=== PATIENT | female | born 1990 | race Caucasian/White ===

== ENCOUNTER 2024-02-19 22:02 | Emergency (ER) | payer BC, SELFPAY ==
[2024-02-19 22:08] VITALS: BP 122/84
[2024-02-19 22:32] LABS: % Basophils 0.6 % (0-2); % Eosinophils 2.6 % (0-6); % Immature Granulocytes 0.2 % (0-0.5); % Lymphocytes 42.7 % (20.5-51.1); % Monocytes 7.6 % (1.7-9.3); % Neutrophils 46.3 % (42.2-75.2); Absolute Basophils 0.1 10^3/uL (0-0.2); Absolute Eosinophils 0.2 10^3/uL (0-0.7); Absolute Monocytes 0.7 10^3/uL (0.1-0.6); Absolute Neutrophils 4.3 10^3/uL (1.4-6.5); Hematocrit 42.1 % (37.0-47.0); Hemoglobin 15.1 g/dL (12.0-16.0); Mean Corp Hgb Conc. 35.9 g/dL (33.0-37.0); Mean Corpuscular Hgb 29.8 pg (27.0-31.0); Mean Corpuscular Volume 83.2 fL (81.0-99.0); Mean Platelet Volume 8.7 fL (7.4-10.4); Nucleated Red Blood Cells % 0 %; Platelet Count 414 10^3/uL (130-400); Red Blood Cell Count 5.06 10^6/uL (4.20-5.40); Red Cell Dist. Width 12.5 % (11.5-14.5); White Blood Cell Count 9.3 10^3/uL (4.8-10.8)
[2024-02-19 22:44] LABS: HCG, Serum Qualitative Screen Negative
[2024-02-19 22:47] LABS: ALT (SGPT) 86 U/L (0-35); AST (SGOT) 53 U/L (14-36); Albumin 4.8 g/dl (3.5-5.0); Alkaline Phosphatase 81 U/L (38-126); Blood Urea Nitrogen 12 mg/dl (7-17); Calcium 10.1 mg/dl (8.4-10.2); Carbon Dioxide 28 mmol/L (22-30); Chloride 100 mmol/L (98-107); Glucose 105 mg/dl (70-99); Lipase 144 U/L (23-300); Potassium 3.3 mmol/L (3.5-5.1); Sodium 142 mmol/L (135-145); Total Bilirubin 1.5 mg/dl (0.2-1.3); Total Protein 7.8 g/dl (6.3-8.2); eGFR > 60.00
[2024-02-20 01:09] VITALS: BMI 46.8
[2024-02-20 01:16] VITALS: BP 121/89
--- NOTE | 2024-02-20 01:45 | ED.GENMED ---
History of Present Illness
General
Chief Complaint: Abdominal Pain
Source: patient
Exam Limitations: none
Time Seen by Provider: 02/20/24 01:12
History of Present Illness
History of Present Illness:
This is a 33 year old female that comes in with c/o abd pain. States that on Monday at 3am with diarrhea. States that this continued till yesterday around 12 noon. Then on Monday morning she has a soft stool and then diarrhea and when she got here
she also had diarrhea. States that she feels like she has to go and that there is a big gas bubble. States that she has abd pain, nausea with the diarrhea. Denies any fever, chills, chest pain, SOB, vomiting, headache, dizziness, urinary burning.
Past History
Past History
ED Past Medical History: Asthma (Sport induced), GERD and Other (Migraines)
ED Past Surgical History: None
Social History
Tobacco: Smoker
Alcohol: None
Personal: Single
Living: with family
Review of Systems
Review of Systems
All Other Systems: ROS reviewed and negative except as documented in HPI and ROS
Constitutional: Reports no symptoms; Denies fever or chills
EENT: Reports no symptoms
Respiratory: Reports no symptoms; Denies cough or trouble breathing
Cardiac: Reports no symptoms; Denies chest pain
ABD/GI: Reports abdominal pain, nausea and diarrhea; Denies vomiting
: Reports no symptoms; Denies dysuria, frequency or urgency
Musculoskeletal: Reports no symptoms
Skin: Reports no symptoms
Neurological: Reports no symptoms; Denies dizzy or headache
Psychiatric: Reports no symptoms
Phy Exam
General Physical Exam
General Presentation: no apparent distress
General age: appears stated age
General Skin: warm and dry
General Habitus: normal
General Mental: alert
General Hydration: appears well hydrated
ENT Exam
ENT Exam: TM's normal, pharynx normal and neck supple
Eye Exam
Eye Exam: EOMI
Cardiovascular Exam
Cardiovascular Exam: regular rate/rhythm, no edema, no murmur and normal peripheral pulses
Pulmonary Exam
Pulmonary Exam: lungs clear, no respiratory distress, no rales, chest non tender, no crackles, no rhonchi, no wheezing and no cough
Gastrointestinal Exam
Gastrointestinal Exam: normal bowel sounds, soft, no organomegaly, no pulsatile mass, non distended, tender (Epigastric and RUQ tenderness with palpation) and other (Obese)
Musculoskeletal Exam
Musculoskeletal Exam: full ROM and no edema
Skin Exam
Skin Exam: normal color, warm/dry, no rash and no petechia
Psychiatric Exam
Psychiatric Exam: normal mood/affect
Course
Orders/Labs/Results
Orders:
Orders
02/19/24 22:14
Test Result ONCE
02/19/24 22:24
Complete Blood Count/With Diff Urgent
Comprehensive Metabolic Panel Urgent
HCG, Serum Qualitative Screen Urgent
Lipase Urgent
02/20/24 01:44
Ondansetron Orally Disint [Zofran Odt (Orally Disintegrating)] 4 mg PO NOW STA
US Abdomen Complete/Upper Urgent
Comment:
Reason For Exam: Upper abd pain
02/20/24 02:32
CT Abd/pelvis W Iv Cont Urgent
Comment:
Reason For Exam: abd pain,
0.9% Sodium Chloride 1000 ml [Nss] 1,000 ml IV BOLUS
Abnormal Lab Results
02/19/24
22:24
Plt Count 414 H 10^3/uL
(130-400)
Absolute Lymphs (auto) 4.0 H 10^3/uL
(1.2-3.4)
Absolute Monos (auto) 0.7 H 10^3/uL
(0.1-0.6)
Potassium 3.3 L mmol/L
(3.5-5.1)
Glucose 105 H mg/dl
(70-99)
Total Bilirubin 1.5 H mg/dl
(0.2-1.3)
AST 53 H U/L
(14-36)
ALT 86 H U/L
(0-35)
02/19/24 22:24
02/19/24 22:24
plt slightly elevated. hypokalemia, Glucose nonfasting. Total josé slightly elevated AST/ALT mildly elevated. Lipase normal at 144, HCG negative
Vital Signs
Initial and Last Documented VS:
Initial Vital Signs
Temp Pulse Resp BP Pulse Ox
98.4 F 102 18 122/84 97
02/19/24 22:08 02/19/24 22:08 02/19/24 22:08 02/19/24 22:08 02/19/24 22:08
Last Documented Vital Signs
Temp Pulse Resp BP Pulse Ox
98.4 F 102 18 124/71 98
02/19/24 22:08 02/19/24 22:08 02/19/24 22:08 02/20/24 02:13 02/20/24 02:15
MDM/Problems Addressed
Differential Diagnosis Includes:
Enteritis, Gallbladder disease,
MDM/Problems Addressed:
This is a 33 year old female that comes in with c/o abd pain, diarrhea. States that she started on Monday morning with diarrhea and this continued. States that it stopped for a short time and she had a soft stool but after this it was diarrhea.
Denies any antibiotic use.
Will check labs, US and if nothing abnormal on US will get CT scan.
Back into see patient. Explained that her US is normal. Will get CT scan.
Back into see patient. Explained that her CT scan is negative for any acute process that it just see's the diarrhea. This is most likely a viral illness. Patient to increase her water intake and follow up with the family doctor. Return with any
concerns.
Chronic conditions affecting care:
NA
Acute Exacerbation and/or Progression of Chronic Illness:
NA
*Radiology
Radiology exam reviewed: radiology read reviewed (US-Mild to moderate fatty liver. Otherwise the liver, gallbladder and visualized biliary system are unremarkable. No gallstones or sonographic Cox's sign. Spleen and kidneys are unremarkable.
Remainder of the visualized upper abdomen is unremarkable. ), all reviewed NAD by ED Provider (CT night hawk-Air stool levels in the large bowel suggestive of diarrhea. No evidence of obstruction, wall thickening or inflammatory stranding.
Normal appendix. Reactive mesenteric lymph nodes. Fatty liver with 11mm hyperenhancing lesion right lobe of the liver possibly hemangioma. Comparisons ) and other (CT cont- Comparisons with prior studies would e helpful. Kidneys unremarkable. )
*Pulse Oximetry
Patient hypoxic: no
*EKG
Interpreted by ED Provider?: NA
Rate: EKG- N/A
*Under Trimmer Interpretation
Rate: Under Trimmer- N/A
*Critical Care Note
Total Time (30-74mins, 75-104mins- exclusive of procedures): Not Applicable
ED Attending Note
-
Portions of this chart may have been created with voice recognition software.� Occasional wrong word or��sound alike� substitutions may have occurred due to the inherent limitations of voice recognition software.
Discharge Plan
Departure
Patient Disposition: Home (Routine Discharge)
Date of Disposition: 02/20/24
Time of Disposition: 04:30
Patient with high blood pressure during this ER visit?: No
Condition: Good
Covid-19: Not Applicable
Discharge Problem:
Abdominal pain, Diarrhea
Instructions: Diarrhea in teens and adults, Abdominal Pain
Prescriptions:
No Action
valacyclovir [Valtrex] 500 mg Tablet
500 mg PO DAILY
propranolol 40 mg Tablet
40 mg PO BID
famotidine 20 mg Tablet
20 mg PO DAILY
norethindrone (contraceptive) 0.35 mg (21) Tablet
0.35 mg PO DAILY
semaglutide
1 dose SC WEEKLY
Referrals:
PRIVATE,PHYSICIAN [Family Provider] -
Activity Restrictions/Additional Instructions:
As discussed, your blood work shows that your potassium is slightly low. Your liver enzymes are slightly elevated. Your Ultrasound was normal and your CT is negative or any acute process. There is liquid stool noted in the bowel. This is most likely
a viral illness.Please stay away from milk and milk products until the diarrhea stops. Please increase your water intake to 8-8oz glasses daily. Follow up with the family doctor for recheck. IF YOU HAVE ANY OTHER CONCERNS PLEASE RETURN TO THE
EMERGENCY ROOM .
Interventions
Interventions:
*Risk Screen - Suicide Last Done: 02/19/24 22:08
*General Assessment Last Done: 02/19/24 22:08
*Neglect/Abuse Screening Last Done: 02/19/24 22:08
ED- Fall Risk Assessment Last Done: 02/20/24 01:13
VR-Aytdhi-Lkfhbckxfe Assessment Last Done: 02/20/24 01:13
Discharge Date and Time
Print Language: ANGUILLAN
[2024-02-20 02:13] VITALS: BP 124/71
[2024-02-20] MEDS: NSS 1000 IV (02:43)
[2024-02-20 04:37] VITALS: BP 149/81
== END 2024-02-20 04:45 | disposition home or self-care (01) ==
LOC: EMR 22:02
PROVIDERS: Emergency Medicine; EMERGENCY PHYSICIAN Emergency Medicine
DX: R10.10 Upper abdominal pain, unspecified (principal); R10.13 Epigastric pain; R19.7 Diarrhea, unspecified; F17.200 Nicotine dependence, unspecified, uncomplicated
CPT/HCPCS: 99285; 96360; 96361; 74177; 76700; 80053; 83690; 84703; 85025; Q9967